=== PATIENT | male | born 1935 | race Caucasian/White ===

== ENCOUNTER 2024-09-26 00:49 | Inpatient (IN) | payer BC, MEDICARE ==
[~2024-09-26] VITALS: Ht 170.2 cm; Wt 68.4 kg
[2024-09-27] VITALS (7 sets, daily range): BP systolic 112–140; BP diastolic 77–93; TEMP 97.5–98.1; O2SAT 88–98
[2024-09-27 00:22] LABS: BASO % 0.5 % (0.0-1.0); EOS # 0.1 10^3/uL (0.0-0.5); EOS % 0.7 % (0.0-3.0); HEMATOCRIT 42.9 % (42.0-52.0); LYMPH # 1.7 10^3/uL (1.5-5.0); LYMPH % 23.7 % (24.0-44.0); MEAN CORPUSCULAR HEMOGLOBIN 29.8 pg (27.0-33.0); MEAN CORPUSCULAR HGB CONC 32.6 g/dl (32.0-36.5); MEAN CORPUSCULAR VOLUME 91.3 fl (80.0-96.0); MONO # 0.6 10^3/uL (0.0-0.8); MONO % 8.2 % (2.0-8.0); NEUTROPHILS # 4.9 10^3/uL (1.5-8.5); NEUTROPHILS % 66.5 % (36.0-66.0); PLATELET COUNT, AUTOMATED 213 10^3/uL (150-450); WHITE BLOOD COUNT 7.4 10^3/uL (4.0-10.0)
[2024-09-27] MEDS ORDERED: ISOVUE-370 76% 100ML VIAL As Ordered ONE (00:53)
[2024-09-27] MEDS: FUROSEMIDE 20MG/2ML VIAL IV ONE (01:31)
[2024-09-27 01:54] LABS: ALBUMIN 3.4 G/DL (3.2-5.2); ALKALINE PHOSPHATASE 82 U/L (40-129); ALT/SGPT 59 U/L (7.0-40); AST/SGOT 46 U/L (<34); BILIRUBIN,DIRECT 0.3 MG/DL (<0.4); BILIRUBIN,TOTAL 0.8 MG/DL (0.3-1.2); BLOOD UREA NITROGEN 36 MG/DL (9-23); CARBON DIOXIDE LEVEL 21 MMOL/L (20-31); CHLORIDE LEVEL 105 MMOL/L (98-107); CREATININE FOR GFR 1.14 MG/DL (0.70-1.30); GLOMERULAR FILTRATION RATE > 60.0 (>35); GLUCOSE, FASTING 109 MG/DL (74-106); POTASSIUM SERUM 4.8 MMOL/L (3.5-5.1); SODIUM LEVEL 136 MMOL/L (136-145); TOTAL PROTEIN 6.2 G/DL (5.7-8.2)
[2024-09-27 01:56] LABS: FREE T4 1.45 NG/DL (0.89-1.76); THYROID STIMULATING HORMONE 6.067 uIU/ML (0.55-4.78)
[2024-09-27] MEDS: IPRATROPIUM 0.5MG/ALBUTEROL 2.5MG INH SOL UD 3ML (DUONEB) INH SCH (02:00)
[2024-09-27] MEDS ORDERED: HOME MED LIST COMPLETE! XX SCH (02:40)
[2024-09-27] MEDS ORDERED: MAALOX 30 ML SUSP *UDC PO PRN (03:10)
[2024-09-27] MEDS ORDERED: MOM 30ML SUSPENSION UDC PO PRN (03:10)
[2024-09-27] MEDS ORDERED: ACETAMINOPHEN 325 MG TAB PO PRN (03:10)
[2024-09-27] MEDS: cefTRIAXone SOD 1 GM in DEXTROSE 5% (D5W) ADV/MINI-BAG 50 ML IV SCH (03:43)
[2024-09-27] MEDS: DOXYCYCLINE HYCLATE 100MG TABLET PO SCH (05:20)
[2024-09-27 06:34] LABS: HEMATOCRIT 43.7 % (42.0-52.0); HEMOGLOBIN 14.1 g/dl (13.5-17.5); MEAN CORPUSCULAR HEMOGLOBIN 29.6 pg (27.0-33.0); MEAN CORPUSCULAR HGB CONC 32.3 g/dl (32.0-36.5); MEAN CORPUSCULAR VOLUME 91.8 fl (80.0-96.0); PLATELET COUNT, AUTOMATED 197 10^3/uL (150-450); RED BLOOD COUNT 4.76 10^6/uL (4.30-6.10); WHITE BLOOD COUNT 6.9 10^3/uL (4.0-10.0)
[2024-09-27 07:01] LABS: ALBUMIN 3.4 G/DL (3.2-5.2); ALKALINE PHOSPHATASE 73 U/L (40-129); ALT/SGPT 55 U/L (7.0-40); AST/SGOT 37 U/L (<34); BILIRUBIN,TOTAL 0.9 MG/DL (0.3-1.2); BLOOD UREA NITROGEN 33 MG/DL (9-23); CALCIUM LEVEL 9.1 MG/DL (8.3-10.6); CARBON DIOXIDE LEVEL 25 MMOL/L (20-31); CHLORIDE LEVEL 104 MMOL/L (98-107); CREATININE FOR GFR 1.16 MG/DL (0.70-1.30); GLOMERULAR FILTRATION RATE > 60.0 (>35); GLUCOSE, FASTING 91 MG/DL (74-106); MAGNESIUM LEVEL 2.3 MG/DL (1.8-2.4); POTASSIUM SERUM 4.3 MMOL/L (3.5-5.1); SODIUM LEVEL 138 MMOL/L (136-145); TOTAL PROTEIN 6.1 G/DL (5.7-8.2)
[2024-09-27 07:07] LABS: PROCALCITONIN 0.06 ng/ml
[2024-09-27] MEDS: DOCUSATE SODIUM 100MG CAPSULE PO SCH (09:43)
[2024-09-27] MEDS: guaiFENesin ER TABLET 600 MG TAB PO SCH (09:43)
[2024-09-27] MEDS: FUROSEMIDE 40 MG TAB PO SCH (09:44)
[2024-09-27] MEDS: HEPARIN SOD (PORCINE) 5000UNITS/ML 1ML VIAL/SYRINGE SC SCH (09:44)
[2024-09-28 04:00] VITALS: BP 123/79; TEMP 98.2; O2SAT 96
[2024-09-28 05:59] LABS: HEMATOCRIT 42.1 % (42.0-52.0); HEMOGLOBIN 13.7 g/dl (13.5-17.5); MEAN CORPUSCULAR HEMOGLOBIN 29.8 pg (27.0-33.0); MEAN CORPUSCULAR HGB CONC 32.5 g/dl (32.0-36.5); MEAN CORPUSCULAR VOLUME 91.5 fl (80.0-96.0); PLATELET COUNT, AUTOMATED 181 10^3/uL (150-450); WHITE BLOOD COUNT 6.9 10^3/uL (4.0-10.0)
[2024-09-28 06:24] LABS: BLOOD UREA NITROGEN 28 MG/DL (9-23); CALCIUM LEVEL 8.7 MG/DL (8.3-10.6); CARBON DIOXIDE LEVEL 27 MMOL/L (20-31); CHLORIDE LEVEL 105 MMOL/L (98-107); CREATININE FOR GFR 1.13 MG/DL (0.70-1.30); GLOMERULAR FILTRATION RATE > 60.0 (>35); GLUCOSE, FASTING 90 MG/DL (74-106); POTASSIUM SERUM 3.7 MMOL/L (3.5-5.1); SODIUM LEVEL 142 MMOL/L (136-145)
[2024-09-28] MEDS: POTASSIUM CHLORIDE 10MEQ SR TABLET PO ONE (08:38)
[2024-09-28] MEDS ORDERED: FURO40TA2 PO (11:59)
[2024-09-28] MEDS ORDERED: DOXY100T PO (11:59)
[2024-09-28] MEDS ORDERED: POTA-151 PO (11:59)
[2024-09-28] MEDS ORDERED: AMOX875T2 PO (11:59)
[2024-09-28 12:00] VITALS: BP 138/99; TEMP 98.1; O2SAT 99
== END 2024-09-28 12:40 | disposition home or self-care (01) | DRG 293 ==
LOC: M ED 09-27 00:49 → M ED INP 09-27 03:10 → M MSPAV 09-27 03:58
PROVIDERS: ADMIT Student in an Organized Health Care Education/Training Program; ATTEND Student in an Organized Health Care Education/Training Program
DX: I50.9 Heart failure, unspecified (principal); R74.01 Elevation of levels of liver transaminase levels; N28.1 Cyst of kidney, acquired; N40.0 Benign prostatic hyperplasia without lower urinary tract symptoms

== ENCOUNTER 2024-10-14 13:33 | Inpatient (IN) | payer MEDICARE ==
[~2024-10-14] VITALS: Ht 170.2 cm; Wt 68.1 kg
[~2024-10-14 13:33] MED LIST: AMOX875T2 PO; DOXY100T PO; FURO40TA2 PO; POTA-151 PO
[2024-10-14 14:26] LABS: BASO % 0.5 % (0.0-1.0); EOS % 0.4 % (0.0-3.0); HEMATOCRIT 46.2 % (42.0-52.0); LYMPH # 1.8 10^3/uL (1.5-5.0); MEAN CORPUSCULAR HEMOGLOBIN 30.3 pg (27.0-33.0); MEAN CORPUSCULAR HGB CONC 32.5 g/dl (32.0-36.5); MEAN CORPUSCULAR VOLUME 93.3 fl (80.0-96.0); MONO # 0.5 10^3/uL (0.0-0.8); MONO % 6.9 % (2.0-8.0); NEUTROPHILS # 5.2 10^3/uL (1.5-8.5); NEUTROPHILS % 67.8 % (36.0-66.0); PLATELET COUNT, AUTOMATED 223 10^3/uL (150-450); RED BLOOD COUNT 4.95 10^6/uL (4.30-6.10); WHITE BLOOD COUNT 7.6 10^3/uL (4.0-10.0)
[2024-10-14 14:39] LABS: INR 1.26; PROTHROMBIN TIME 16.1 SECONDS (12.5-14.5)
[2024-10-14 15:04] LABS: ALBUMIN 3.6 G/DL (3.2-5.2); ALKALINE PHOSPHATASE 106 U/L (40-129); ALT/SGPT 78 U/L (7.0-40); AST/SGOT 61 U/L (<34); BILIRUBIN,DIRECT 0.5 MG/DL (<0.4); BILIRUBIN,TOTAL 1.2 MG/DL (0.3-1.2); BLOOD UREA NITROGEN 47 MG/DL (9-23); CALCIUM LEVEL 9.9 MG/DL (8.3-10.6); CARBON DIOXIDE LEVEL 23 MMOL/L (20-31); CHLORIDE LEVEL 105 MMOL/L (98-107); CK-MB VALUE MASS 4.4 NG/ML (<3.6); CPK CREATINE PHOSPHOKINASE 117 U/L (46-171); CREATININE FOR GFR 1.18 MG/DL (0.70-1.30); FREE T4 1.06 NG/DL (0.89-1.76); GLOMERULAR FILTRATION RATE > 60.0 (>35); GLUCOSE, FASTING 117 MG/DL (74-106); MB/CK RELATIVE INDEX 3.76 (< OR =4); POTASSIUM SERUM 5.3 MMOL/L (3.5-5.1); SODIUM LEVEL 139 MMOL/L (136-145); THYROID STIMULATING HORMONE 12.157 uIU/ML (0.55-4.78)
[2024-10-14] MEDS: DEXTROSE 50% 50ML SYRINGE IV STA (16:08)
[2024-10-14] MEDS: CALCIUM GLUCONATE 1,000 MG in DEXTROSE 5% (D5W) MINI-BAG PLU 100 ML IV ONE (16:08)
[2024-10-14] MEDS: HumuLIN R (REGULAR) INSULIN (NovoLIN R) **100U/ML** PER UNIT IV ONE (16:08)
[2024-10-14] MEDS: FUROSEMIDE 40MG/4ML VIAL IV ONE (16:09)
[2024-10-14 16:14] LABS: CK-MB VALUE MASS 5.2 NG/ML (<3.6)
[2024-10-14 16:27] LABS: CPK CREATINE PHOSPHOKINASE 103 U/L (46-171); MB/CK RELATIVE INDEX 5.04 (< OR =4)
[2024-10-14] MEDS ORDERED: IPRATROPIUM 0.5MG/ALBUTEROL 2.5MG INH SOL UD 3ML (DUONEB) NEB PRN (17:20)
[2024-10-14] MEDS ORDERED: guaiFENesin SYRUP 200MG 10ML UDC PO PRN (17:25)
[2024-10-14] MEDS ORDERED: HOME MED LIST COMPLETE! XX SCH (18:10)
[2024-10-14] MEDS: PIPERACILLIN/TAZOBACTAM SOD 4.5 GM in DEXTROSE 5% (D5W) ADV/MINI-BAG 50 ML IV ONE (18:47)
[2024-10-14] MEDS: VANCOMYCIN HCL 1,000 MG, VIAL MATE ADAPTER 1 EACH in NS 250 ML IV ONE (18:48)
[2024-10-14 19:06] LABS: MAGNESIUM LEVEL 2.4 MG/DL (1.8-2.4)
[2024-10-14 19:57] LABS: INR 1.33; PARTIAL THROMBOPLASTIN TIME 34.1 SECONDS (24.8-34.2); PROTHROMBIN TIME 16.7 SECONDS (12.5-14.5)
[2024-10-14 20:47] LABS: PROCALCITONIN 0.08 ng/ml
[2024-10-14 20:56] LABS: HEPATITIS B SURFACE ANTIGEN NEGATIVE (NEGATIVE)
[2024-10-14 21:26] LABS: HEPATITIS B CORE ANTIBODY IGM NEGATIVE (NEGATIVE); HEPATITIS C VIRUS ABY INDEX < 0.02 INDEX (<0.8)
[2024-10-15] MEDS: LEVOTHYROXINE 50MCG TABLET (0.05MG) PO SCH (06:19)
[2024-10-15 06:44] LABS: HEMATOCRIT 46.2 % (42.0-52.0); HEMOGLOBIN 15.1 g/dl (13.5-17.5); MEAN CORPUSCULAR HEMOGLOBIN 30.2 pg (27.0-33.0); MEAN CORPUSCULAR HGB CONC 32.7 g/dl (32.0-36.5); MEAN CORPUSCULAR VOLUME 92.4 fl (80.0-96.0); PLATELET COUNT, AUTOMATED 191 10^3/uL (150-450)
[2024-10-15 07:11] LABS: BLOOD UREA NITROGEN 46 MG/DL (9-23); CALCIUM LEVEL 8.8 MG/DL (8.3-10.6); CARBON DIOXIDE LEVEL 27 MMOL/L (20-31); CHLORIDE LEVEL 106 MMOL/L (98-107); CHOLESTEROL LEVEL 165 MG/DL (<200); CHOLESTEROL RISK RATIO 4.18 (<5); CREATININE FOR GFR 1.17 MG/DL (0.70-1.30); GLOMERULAR FILTRATION RATE > 60.0 (>35); GLUCOSE, FASTING 70 MG/DL (74-106); HDL CHOLESTEROL 39.4 MG/DL (>40); LDL CHOLESTEROL 109.6 MG/DL (<100); MAGNESIUM LEVEL 2.4 MG/DL (1.8-2.4); NON-HDL-C 125.6 MG/DL; POTASSIUM SERUM 4.2 MMOL/L (3.5-5.1); SODIUM LEVEL 146 MMOL/L (136-145); TRIGLYCERIDES LEVEL 80 MG/DL (<150)
[2024-10-15] MEDS: FUROSEMIDE 40MG/4ML VIAL IV SCH (09:18)
[2024-10-15] MEDS: RIVAROXABAN 10MG TAB (XARELTO) PO SCH (09:18)
[2024-10-15 18:30] LABS: CALCIUM LEVEL 8.4 MG/DL (8.3-10.6); CREATININE FOR GFR 1.32 MG/DL (0.70-1.30); GLOMERULAR FILTRATION RATE 54.5 (>35); MAGNESIUM LEVEL 2.3 MG/DL (1.8-2.4); POTASSIUM SERUM 3.9 MMOL/L (3.5-5.1)
[2024-10-16 06:43] LABS: HEMOGLOBIN 15.7 g/dl (13.5-17.5); MEAN CORPUSCULAR HEMOGLOBIN 29.4 pg (27.0-33.0); MEAN CORPUSCULAR HGB CONC 32.7 g/dl (32.0-36.5); MEAN CORPUSCULAR VOLUME 89.9 fl (80.0-96.0); PLATELET COUNT, AUTOMATED 201 10^3/uL (150-450); RED BLOOD COUNT 5.34 10^6/uL (4.30-6.10); WHITE BLOOD COUNT 8.1 10^3/uL (4.0-10.0)
[2024-10-16 07:05] LABS: BLOOD UREA NITROGEN 41 MG/DL (9-23); CALCIUM LEVEL 8.3 MG/DL (8.3-10.6); CARBON DIOXIDE LEVEL 28 MMOL/L (20-31); CHLORIDE LEVEL 106 MMOL/L (98-107); CREATININE FOR GFR 1.17 MG/DL (0.70-1.30); GLOMERULAR FILTRATION RATE > 60.0 (>35); GLUCOSE, FASTING 97 MG/DL (74-106); MAGNESIUM LEVEL 2.1 MG/DL (1.8-2.4); POTASSIUM SERUM 3.6 MMOL/L (3.5-5.1); SODIUM LEVEL 144 MMOL/L (136-145)
[2024-10-16 12:45] VITALS: BP 129/80; TEMP 97.8; O2SAT 99
[2024-10-16 14:18] VITALS: BP 122/79; TEMP 97.9; O2SAT 98
[2024-10-16] MEDS: ENTRESTO 24-26MG TABLET (SACUBITRIL/VALSARTAN) PO ONE (17:27)
[2024-10-16] MEDS: DAPAGLIFLOZIN PROPANEDIOL 10MG TABLET (FARXIGA) PO SCH (17:27)
[2024-10-16] MEDS: METOPROLOL SUCC *XL* 12.5MG PER 1/2 TAB (TopROL *XL*) PO SCH (18:17)
[2024-10-16 18:47] LABS: BLOOD UREA NITROGEN 35 MG/DL (9-23); CALCIUM LEVEL 8.2 MG/DL (8.3-10.6); CARBON DIOXIDE LEVEL 32 MMOL/L (20-31); CHLORIDE LEVEL 104 MMOL/L (98-107); CREATININE FOR GFR 1.17 MG/DL (0.70-1.30); GLOMERULAR FILTRATION RATE > 60.0 (>35); GLUCOSE, FASTING 90 MG/DL (74-106); POTASSIUM SERUM 3.6 MMOL/L (3.5-5.1); SODIUM LEVEL 143 MMOL/L (136-145)
[2024-10-16 19:53] VITALS: BP 116/64; TEMP 98.8; O2SAT 96
[2024-10-17 03:17] VITALS: BP 137/69; TEMP 98.4; O2SAT 93
[2024-10-17 06:09] LABS: HEMOGLOBIN 17.2 g/dl (13.5-17.5); MEAN CORPUSCULAR HGB CONC 33.1 g/dl (32.0-36.5); MEAN CORPUSCULAR VOLUME 90.8 fl (80.0-96.0); PLATELET COUNT, AUTOMATED 212 10^3/uL (150-450); RED BLOOD COUNT 5.73 10^6/uL (4.30-6.10); WHITE BLOOD COUNT 8.6 10^3/uL (4.0-10.0)
[2024-10-17 06:34] LABS: BLOOD UREA NITROGEN 34 MG/DL (9-23); CALCIUM LEVEL 8.1 MG/DL (8.3-10.6); CARBON DIOXIDE LEVEL 27 MMOL/L (20-31); CHLORIDE LEVEL 108 MMOL/L (98-107); CREATININE FOR GFR 1.16 MG/DL (0.70-1.30); GLOMERULAR FILTRATION RATE > 60.0 (>35); GLUCOSE, FASTING 86 MG/DL (74-106); POTASSIUM SERUM 3.5 MMOL/L (3.5-5.1); SODIUM LEVEL 145 MMOL/L (136-145)
[2024-10-17] MEDS: POTASSIUM CHLORIDE 10MEQ SR TABLET PO ONE (08:18)
[2024-10-17] MEDS: SPIRONOLACTONE 12.5MG PER 1/2 TABLET PO SCH (08:21)
[2024-10-17 08:22] VITALS: BP 110/68
[2024-10-17] MEDS: ENTRESTO 24-26MG TABLET (SACUBITRIL/VALSARTAN) PO SCH (08:22)
[2024-10-17] MEDS ORDERED: ALDA25TA2 PO (09:43)
[2024-10-17] MEDS ORDERED: FARX1TAB3 PO (09:43)
[2024-10-17] MEDS ORDERED: METO1TAB32 PO (09:43)
[2024-10-17] MEDS ORDERED: ENTR1TAB PO (09:43)
[2024-10-17] MEDS ORDERED: LEVO50TA5 PO (09:43)
[2024-10-17] MEDS ORDERED: METO25TA PO (09:46)
[2024-10-17 10:16] LABS: IRON (FE) 32 UG/DL (65-175); PERCENT SATURATION 12.2 % (19.7-50.0); TOTAL IRON BINDING CAPACITY 262 UG/DL (250-425)
[2024-10-17 10:18] LABS: FERRITIN 219.8 NG/ML (10.5-307.3)
[2024-10-17 10:54] LABS: VITAMIN B12 LEVEL 1322 PG/ML (211-911)
[2024-10-17 11:05] LABS: FOLATE 17.66 NG/ML (>5.4)
[2024-10-17] MEDS: FERRIC CARBOXYMALTOSE INJ 750 MG, VIAL MATE ADAPTER 1 EACH in NS 100 ML IV ONE (11:54)
[2024-10-17 12:00] VITALS: TEMP 98.1; O2SAT 96
[2024-10-17 12:42] VITALS: BP 85/57
[2024-10-17] MEDS: LR 500 ML IV ONE (12:50)
[2024-10-17] MEDS ORDERED: TORS10TA3 PO (12:51)
[2024-10-17] MEDS ORDERED: GUAI5EL PO (13:13)
[2024-10-17 13:14] VITALS: BP 84/60
[2024-10-17 13:37] VITALS: BP 110/64
== END 2024-10-17 14:15 | disposition home health service (06) | DRG 292 ==
LOC: M ED 13:33 → M ED INP 17:08 → M MSPAV 10-16 14:13
PROVIDERS: ADMIT Student in an Organized Health Care Education/Training Program; ATTEND Student in an Organized Health Care Education/Training Program
DX: I50.23 Acute on chronic systolic (congestive) heart failure (principal); E87.0 Hyperosmolality and hypernatremia; J21.0 Acute bronchiolitis due to respiratory syncytial virus; J98.11 Atelectasis; E87.5 Hyperkalemia; E02 Subclinical iodine-deficiency hypothyroidism; I08.3 Combined rheumatic disorders of mitral, aortic and tricuspid valves; E61.1 Iron deficiency; R97.20 Elevated prostate specific antigen [PSA]; R74.01 Elevation of levels of liver transaminase levels; I44.7 Left bundle-branch block, unspecified; R94.5 Abnormal results of liver function studies; Z91.148 Patient's other noncompliance with medication regimen for other reason

== ENCOUNTER → 2024-11-16 | Outpatient (CLI) | payer MEDICARE ==
[~2024-11-16] MED LIST changes: +ALDA25TA2 PO; +ENTR1TAB PO; +FARX1TAB3 PO; +GUAI5EL PO; +LEVO50TA5 PO; +METO1TAB32 PO; +METO25TA PO; +TORS10TA3 PO
[2024-11-16 11:23] LABS: THYROID STIMULATING HORMONE 3.056 uIU/ML (0.55-4.78)
[2024-11-16 11:24] LABS: FREE T4 1.11 NG/DL (0.89-1.76)
[2024-11-16 11:26] LABS: ALBUMIN 3.5 G/DL (3.2-5.2); BILIRUBIN,TOTAL 0.8 MG/DL (0.3-1.2); CALCIUM LEVEL 9.4 MG/DL (8.3-10.6); CREATININE FOR GFR 1.22 MG/DL (0.70-1.30); GLOMERULAR FILTRATION RATE 59.7 (>35); POTASSIUM SERUM 4.8 MMOL/L (3.5-5.1)
== END ==
LOC: M LAB 10:14
PROVIDERS: ATTEND Student in an Organized Health Care Education/Training Program
DX: I50.9 Heart failure, unspecified (principal); R97.20 Elevated prostate specific antigen [PSA]; E02 Subclinical iodine-deficiency hypothyroidism

== ENCOUNTER 2024-11-23 06:11 | Day surgery (SDC) | payer MEDICARE ==
[~2024-11-23] VITALS: Ht 172.7 cm; Wt 60.7 kg
[~2024-11-23 06:11] MED LIST changes: +PHENYLEPHRINE 10% OPHTH SOL 5ML OD PRN
[2024-11-23] MEDS: OFLOXACIN 0.3 % (OCUFLOX) OPTH SOL 5ML OD ONE (06:36)
[2024-11-23] MEDS: LIDOCAINE 3.5 % 1ML OPHTH TOPICAL GEL OU ONE (06:36)
[2024-11-23] MEDS: CYCLOPENTOLATE 1% OPHTH SOLN 2ML BTL OD SCH (06:37)
[2024-11-23] MEDS: TROPICAMIDE 1% OPHTH SOLN 15ML OD SCH (06:37)
[2024-11-23] MEDS: PHENYLEPHRINE 2.5% OPHTH SOL 2ML OD SCH (06:37)
[2024-11-23] MEDS ORDERED: propofoL 200 MG/20 ML VIAL As Ordered ONE (06:41)
[2024-11-23] MEDS ORDERED: LIDOCAINE 2% 100MG/5ML SDV (FOR ANES.) As Ordered ONE (06:41)
[2024-11-23] MEDS: LIDOCAINE 1% SDV 5ML VIAL As Ordered ONE (07:48)
[2024-11-23] MEDS: BSS IRRIG/VANCO(10MG)/TOBRA(5MG)/EPINEPH(1:1000-0.5CC)500ML BAG-ORONLY As Ordered ONE (07:49)
[2024-11-23] MEDS: CEFUROXIME 1MG/0.1ML INTRACAMERAL INJ As Ordered ONE (07:49)
[2024-11-23 08:01] VITALS: BP 108/61; TEMP 97; O2SAT 98
== END 2024-11-23 08:30 | disposition home or self-care (01) ==
LOC: M SDC 06:11
PROVIDERS: ATTEND Ophthalmology
DX: H25.11 Age-related nuclear cataract, right eye (principal); R60.9 Edema, unspecified; E03.9 Hypothyroidism, unspecified; I50.9 Heart failure, unspecified; Z79.899 Other long term (current) drug therapy
CPT/HCPCS: 66984; J0697; V2632